=== PATIENT | male | born 1955 | race Caucasian/White ===

== ENCOUNTER 2024-09-15 13:24 | Inpatient (IN) | payer MEDICARE, OTHER, SELFPAY ==
[2024-09-15] VITALS (9 sets, daily range): BP systolic 100–148; BP diastolic 62–104; BMI 22.5; BMI 35.8
[2024-09-15 11:00] LABS: Hematocrit 43.7 % (39.0-52.0); Hemoglobin 15.1 g/dL (13.0-18.0); Mean Corp Hgb Conc. 34.6 g/dL (33.0-37.0); Mean Corpuscular Volume 86.2 fL (80.0-94.0); Nucleated Red Blood Cells % 0 % (-); Platelet Count 167 10^3/uL (130-400); Red Cell Dist. Width 13.0 % (11.5-14.5)
[2024-09-15 11:17] LABS: ALT (SGPT) 73 U/L (0-50); AST (SGOT) 39 U/L (17-59); Albumin 4.4 g/dl (3.5-5.0); Alkaline Phosphatase 48 U/L (38-126); Blood Urea Nitrogen 18 mg/dl (9-20); Calcium 8.8 mg/dl (8.4-10.2); Carbon Dioxide 26 mmol/L (22-30); Chloride 108 mmol/L (98-107); Glucose 100 mg/dl (70-99); Potassium 4.4 mmol/L (3.5-5.1); Sodium 140 mmol/L (135-145); Total Protein 6.7 g/dl (6.3-8.2); eGFR 59.47
[2024-09-15 11:30] LABS: Troponin I 0.064 ng/ml
--- NOTE | 2024-09-15 11:52 | ED.GENMED ---
History of Present Illness
General
Chief Complaint: Cardiac Symptoms
Time Seen by Provider: 09/15/24 11:41
History of Present Illness
History of Present Illness:
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 States he had similar symptoms with
exertion approximately 3 months ago but they resolved. He reports some chest tightness but denies any overt chest pain with the symptoms. Currently no chest pain in the exam bed but does report shortness of breath after changing into a gown. He
has chronic left lower extremity edema due to a known chronic DVT for which he is not currently anticoagulated. Denies any recent immobilization or travel. No fevers or chills, no coughing. Does have family history of cardiovascular disease but
no primary history of tobacco use, hypertension, or hyperlipidemia
Review of Systems
Review of Systems
Allergies reviewed?: Yes
All Other Systems: ROS reviewed and negative except as documented in HPI and ROS
Phy Exam
Physical Exam
Physical Exam:
GEN: Well appearing, NAD, WDWN
Eyes: PERRLA, EOMs intact, no scleral icterus
HENT: NCAT, oral mucosa moist
Lungs: CTAB, no wheezes, rales, rhonchi, normal chest wall excursion
Cardiac: Mildly tachycardic, regular, no murmur
Abdomen: S, NT, ND, NABS, no masses or hepatosplenomegaly
Neuro: AO x 3
MSK: No gross deformity or ecchymosis. No edema. No digital clubbing
Skin: No rashes, petechiae. Normal color, no pallor or jaundice.
Psych: Calm, cooperative, proper hygiene
Course
Orders/Labs/Results
Orders:
Orders
09/15/24 10:47
Electrocardiogram (*1) Urgent
Reason for Study: Chest Pain
EKG- Treatment ONCE
09/15/24 10:53
Complete Blood Count/With Diff Urgent
Comprehensive Metabolic Panel Urgent
NT-proBNP Urgent
Troponin I Urgent
09/15/24 11:51
Add On- LAB Urgent
Tests Added?: BNP
CT Chest PE Study Urgent
Comment:
Reason For Exam: SOB/exertional tachycardia
Aspirin Chewable [Low Strength Aspirin] 324 mg PO NOW STA
09/15/24 11:56
Heparin 4,000 units IV NOW STA
09/15/24 11:58
PTT Urgent
Comment: Obtain baseline before beginning heparin infusion if not already collected
09/15/24 12:00
Heparin 39375 Units/250 ml 25,000 units in 250 ml IV PER PROTOCOL
Weight to be used for heparin protocol in kilograms (kg):: 79.5
Protocol:: Cardiac Tx/Acute Coronary
PTT Goal Range to be used:: PTT 73 to 111 seconds
Order type:: Initial
INITIAL Infusion Dose (UNITS/KG/hr) & then follow protocol:: 15 units/kg/hr
Infusion Dose in UNITS/hr & then follow protocol (UNITS/hr):: 1,200
INFUSION RATE in mL/hr & then follow protocol (mL/hr):: 12
PTT less than or equal to 64 seconds:: Increase rate by 200 units/hr (+ 2 mL/hr)
PTT 64.1 to 72.9 seconds:: Increase rate by 100 units/hr (+ 1 mL/hr)
PTT 73 to 111 seconds:: Target Range. No change in rate.
PTT 111.1 to 130.9 seconds:: Decrease rate by 100 units/hr (- 1 mL/hr)
PTT 131 to 199.9 seconds:: HOLD for 1 hr. Then decrease rate by 200 units/hr (- 2 mL/hr)
PTT greater than or equal to 200 seconds:: HOLD for 2 hrs & Notify Provider. Then decrease by 200 units/hr (-
2 mL/hr)
Lab follow-up:: Each change, PTT q6h until 2 consecutive are therapeutic. Then PTT
daily.
09/15/24 12:21
Heparin 6,400 units IV NOW STA
Nursing to Place Non Medication Order As Directed
Physician Order: PTT 6 hours after initial start of Heparin infusion
Above order entered?: Yes
09/15/24 12:26
Heparin 3,200 units IV PRN PRN
Heparin 6,400 units IV PRN PRN
09/15/24 12:30
Echo 2D MMode Color/Doppler Stat
Reason for Study: bilateral PEs/RV strain
Cardiology Consult: Nilesh Miranda
Heparin 85076 Units/250 ml 25,000 units in 250 ml IV PER PROTOCOL
Weight to be used for heparin protocol in kilograms (kg):: 79.5
Protocol:: DVT/PE
PTT Goal Range to be used:: PTT 73 to 111 seconds
Order type:: Initial
INITIAL Infusion Dose (UNITS/KG/hr) & then follow protocol:: 18 units/kg/hr
Infusion Dose in UNITS/hr & then follow protocol (UNITS/hr):: 2,000
INFUSION RATE in mL/hr & then follow protocol (mL/hr):: 20
For DVT/PE algorithm, re-bolus for low PTT?: Yes
PTT less than or equal to 64 seconds:: Re-bolus 80 units/kg (max 10,000units). Increase by 300 units/hr
(+ 3mL/hr)
PTT 64.1 to 72.9 seconds:: Re-bolus 40 units/kg (max 5,000 units). Increase by 200 units/hr
(+ 2mL/hr)
PTT 73 to 111 seconds:: Target Range. No change in rate.
PTT 111.1 to 130.9 seconds:: Decrease rate by 200 units/hr (- 2 mL/hr)
PTT 131 to 199.9 seconds:: HOLD for 1 hr. Then decrease by 200 units/hr (- 2mL/hr)
PTT greater than or equal to 200 seconds:: HOLD for 2 hrs & Notify Provider. Then decrease by 300 units/hr
(- 3mL/hr)
Lab follow-up:: Each change, PTT q6h until 2 consecutive are therapeutic. Then
PTT daily.
09/15/24 13:00
Flush (0.9% Sodium Chloride) [Flush (Nss)] See Dose Instructions IV PER PROTOCOL
09/15/24 13:06
Admit/Transfer Patient As Directed
Co-Sign Provider:
Level of Care: Inpatient admission
Assign to:: IMU- Intermediate Care
Physician / Group: amaury crowe
Diagnosis: bilat pe' with rv strain, hx chronic LLE dvt
Reason for Hospitalization: bilat pe' with rv strain, hx chronic LLE dvt
Expected length of stay greater than two midnights?: Yes
ELOS- Estimated Length of Stay in days: 5
I certify the patient meets the requirements for IP care: Yes
Code Status As Directed
Resuscitation Status: Full Code
09/15/24 13:09
PRN Pain Medication Management As Directed
May give lesser potent ordered pain med per pt: Yes
preference::
Protocol:: Medication orders for pain may be administered in a
manner that supports deferring to patient preference
when the pt is:
- Requesting an ordered lesser potent pain medication.
Least to most potent pain medications are defined
as: acetaminophen < NSAID < tramadol < opioids
(morphine, oxycodone, hydromorphone).
- Requesting a lesser dose of the same medication IF
ORDERED.
- Requesting a less intrusive route of administration
if both routes are prescribed by the provider (PO <
IV).
09/15/24 13:10
Old Records Request [Obtain Records] As Directed
Dates of Information to be Released: 8086-1197
Type of Information Requested: Entire Record
Radiology Results
Obtain Records from: [facility] [phone] dvt lle,coagulopathy lab
Comment: ultrasound lle
09/15/24 13:13
Venous Doppler Lwr Ext Bilat [US Periph Venous LOWER Ext Ulises] Urgent
Comment:
Reason For Exam: LLE chronic dvt, swelling
09/15/24 13:14
PULMONARY CONSULT Routine
Consulting Provider: Bari Siegel
Was physician already notified: Yes
Reason for consult: bilat pe's with rv strain
09/15/24 14:56
Acetaminophen [Tylenol] 650 mg PO Q4HPRN PRN
09/15/24 14:56
Heparin Protocol- PTT Orders As Directed
PTT per Heparin protocol: -Obtain CBC and baseline PTT - if not already collected.
-Obtain PTT 6 hours from start of infusion. Then, every 6 hours until 2 consecutive
PTT's are therapeutic. Then, PTT Daily.
-With each rate change, obtain PTT every 6 hours until 2 consecutive PTT's are
therapeutic. Then, PTT Daily.
Activity As Directed
Activity Level: As Tolerated
Notify MD As Directed
Notify physician if: PTT is greater than or equal to 200.
Vital Signs As Directed
Frequency: Per unit guidelines
Pulse Ox/spot Check [RESP] Routine
Quantity: 1
09/15/24 Dinner
Cholesterol Lowering
At Your Request: Full Participation
Cholesterol Lowering: Sodium, 2 Gram
09/15/24 18:34
PTT Routine
09/16/24 06:00
Complete Blood Count/With Diff IN AM
Comprehensive Metabolic Panel IN AM
09/17/24 06:00
Complete Blood Count/No Diff Q2D
Comment: notify provider: Platelet count < 130,000 or decrease by 50% from baseline
Complete Blood Count/With Diff IN AM
Comprehensive Metabolic Panel IN AM
09/18/24 06:00
Complete Blood Count/With Diff IN AM
Comprehensive Metabolic Panel IN AM
09/19/24 06:00
Complete Blood Count/No Diff Q2D
Comment: notify provider: Platelet count < 130,000 or decrease by 50% from baseline
09/21/24 06:00
Complete Blood Count/No Diff Q2D
Comment: notify provider: Platelet count < 130,000 or decrease by 50% from baseline
09/23/24 06:00
Complete Blood Count/No Diff Q2D
Comment: notify provider: Platelet count < 130,000 or decrease by 50% from baseline
09/25/24 06:00
Complete Blood Count/No Diff Q2D
Comment: notify provider: Platelet count < 130,000 or decrease by 50% from baseline
09/27/24 06:00
Complete Blood Count/No Diff Q2D
Comment: notify provider: Platelet count < 130,000 or decrease by 50% from baseline
09/29/24 06:00
Complete Blood Count/No Diff Q2D
Comment: notify provider: Platelet count < 130,000 or decrease by 50% from baseline
10/01/24 06:00
Complete Blood Count/No Diff Q2D
Comment: notify provider: Platelet count < 130,000 or decrease by 50% from baseline
Abnormal Lab Results
09/15/24
10:53
MPV 10.5 H fL
(7.4-10.4)
Lymphocytes % 20.0 L %
(20.5-51.1)
Chloride 108 H mmol/L
(98-107)
Glucose 100 H mg/dl
(70-99)
ALT 73 H U/L
(0-50)
Troponin I 0.064 H* ng/ml
09/15/24 10:53
09/15/24 10:53
Vital Signs
Initial and Last Documented VS:
Initial Vital Signs
Temp Pulse Resp BP Pulse Ox
98.5 F 110 16 122/84 95
09/15/24 10:45 09/15/24 10:45 09/15/24 10:45 09/15/24 10:45 09/15/24 10:45
Last Documented Vital Signs
Temp Pulse Resp BP Pulse Ox
97.8 F 79 17 148/102 96
09/15/24 15:10 09/15/24 16:15 09/15/24 16:15 09/15/24 16:00 09/15/24 16:30
MDM/Problems Addressed
MDM/Problems Addressed:
69-year-old male presented with exertional tachycardia and shortness of breath. He has a known history of left lower extremity DVT thus he was sent urgently for CT to evaluate for pulmonary embolism. He was found to have bilateral PEs with
significant right heart strain however hemodynamically and clinically he is quite stable. Started promptly on heparin. Initially he was given aspirin after initial evaluation given the suspicion for potential ACS in the setting of EKG changes
compared to prior. Case was discussed after completion of CT with radiology, interventional radiology, and pulmonology for continuity of care, at this time we will maintain heparin and admit the patient to the hospitalist service pending further
workup
Comment
Comment:
EKG independently interpreted by me shows a normal sinus rhythm with mild ST depressions and T wave inversions in V3 and V4 which are new compared to 08/06 EKG provided by primary care physician
*Pulse Oximetry
SaO2: 95
Oxygen Mode of Delivery: Room air
Patient hypoxic: no
*Critical Care Note
Total Time (30-74mins, 75-104mins- exclusive of procedures): 40 minutes
comment:
Critical care time: 45 minutes
Critical care time was exclusive of: Separately billable procedures, treating other patients, and teaching time
Critical care was necessary to treat or prevent imminent or life-threatening deterioration of the following conditions: Bilateral pulmonary embolism
Critical care time spent personally by me on the following activities:
[x] Review of old charts
[x] Obtaining history from patient or surrogate
[x] Ordering and review of the laboratory studies
[x] Ordering and review of radiographic studies
[x] Ordering and performing treatments and interventions
[x] Patient patient's response to treatment
[x] Development of treatment plan with patient or surrogate
ED Attending Note
-
Portions of this chart may have been created with voice recognition software.� Occasional wrong word or��sound alike� substitutions may have occurred due to the inherent limitations of voice recognition software.
Discharge Plan
Departure
Patient Disposition: Admit
Date of Disposition: 09/15/24
Time of Disposition: 12:33
Admit to: Telemetry
Presentation/result/management discussed w/ accepting MD/DO: Hospitalist
Discharge Problem:
Bilateral pulmonary embolism
Interventions
Interventions:
*Risk Screen - Suicide Last Done: 09/15/24 10:47
*General Assessment Last Done: 09/15/24 11:57
*Neglect/Abuse Screening Last Done: 09/15/24 10:47
*ED- Fall Risk Assessment Last Done: 09/15/24 11:58
*ED COVID-19 Vaccine History Last Done: 09/15/24 11:57
*Nursing Disposition Last Done: 09/15/24 15:02
ED- Pulmonary Assessment Last Done: 09/15/24 12:55
ED- Cardiac Assessment Last Done: 09/15/24 12:55
Discharge Date and Time
Discharge Date/Time: 09/15/24 15:03
[2024-09-15] MEDS: LOW STRENGTH ASPIRIN 324 MG PO (12:00)
[2024-09-15 12:17] LABS: APTT 27.5 Sec (23.4-35.0)
[2024-09-15] MEDS: HEPARIN 25000 UNITS/250 ML IV (12:34)
[2024-09-15] MEDS: HEPARIN 6400 UNITS IV (12:34)
--- NOTE | 2024-09-15 12:39 | HPS.HSE ---
Family Physician
-
Family Physician: Alvin Garrido
Chief Complaint
-
Palpitations, shortness of breath, chest pain
History of Present Illness
69-year-old male with history of chronic DVTs of left lower extremity has been complaining of palpitations and shortness of breath over the past 3 to 4 days along with some chest tightness. He has a chronic left lower extremity DVT with edema that
he is not on anticoagulation for. He denies any recent injury, travel, fever, chills, cough, abdominal pain, nausea, vomiting, diarrhea, urinary symptoms. He has past medical history of chronic unprovoked DVT left lower extremit in 2020 he was on
Eliquis for 1.5 years had follow-up Doppler of his left lower extremity which showed an Unchanged chronic DVT. He tells me he stopped Eliquis on his own he did tell his oncologist he was not put on any other anticoagulation. He is unsure whether
or not he had any blood clotting disorders.
Medical History
Past Medical History
Past Medical History: Reports Other
Additional Past Medical History:
chronic DVT left lower extremity unprovoked was on Eliquis however unchanged question failure
Past Surgical History: Reports Other
Additional Past Surgical History:
Appendectomy
Hernia repair
Hand surgery
Social History
Tobacco: Non-smoker
Alcohol: None
Drug: None
Personal:
Living: With Family
Employment: Retired
Family History
Family History: Early CAD (Brother age 65 massive [place]) and Other (Mother 95 PAD, father 92 CVA)
Allergies / Home Medications
Allergies reflects when Allergies were last updated in [facility].
Home Medications with original date entered in [facility]
Allergy/Medication List:
Allergies
Allergy/AdvReac Type Severity Reaction Status Date / Time
No Known Allergies Allergy Unverified 09/15/24 10:47
Home Medications
acetaminophen 500 mg tablet (Tylenol Extra Strength) 500 mg PO Q6HPRN PRN headache 09/15/24
Review of Systems
-
History Source: Patient and Family ( at bedside)
A 12 point ROS was completed and negative except as noted: Yes
Constitutional: Denies Fever or Fatigue
EENT: Denies Sore Throat or Runny Nose
Respiratory: Reports Trouble Breathing (HERRON); Denies Cough
Cardiac: Reports Chest Pain and Palpitations; Denies Diaphoresis
Abdomen/GI: Denies Abdominal Pain, Nausea, Vomiting, Diarrhea, Constipated or Bloody Stools
: Denies Dysuria, Frequency, Flank Pain, Incontinence or Difficulty Voiding
Musculoskeletal: Denies Joint Pain or Edema
Skin: Denies Itching or Rash
Neurological: Denies Dizzy, Headache or Weakness
Endocrine: Reports No Symptoms
Hematologic/Lymphatic: Reports No Symptoms
Psych: Reports Calm
Physical Exam
Vital Signs
Vital Signs
Temp Pulse Resp BP Pulse Ox
98.5 F 111 26 141/104 95
09/15/24 10:45 09/15/24 11:45 09/15/24 11:45 09/15/24 11:45 09/15/24 11:52
Physical Exam
General: Comfortable, Conversant and Pain; No Fever or Chills
HEENT: NormoCephalic, Anicteric, Moist mucous membranes, PERRLA, [place] Conjunctivae and No Ptosis
Respiratory: Clear; No Wheezes, Rales or Rhonchi
Cardiac: S1/S2, Regular Rhythm and Calf Tenderness (Left); No Murmur, Rub, Gallop or Peripheral Edema
Breast: Deferred by me
GI: Soft, Non Tender, Non Distended, Normal Bowel Sounds and No Hepatosplenomegaly
Rectal: Deferred by Provider
Genito-urinary: Deferred by me
Musculoskeletal: No Clubbing, No Cyanosis and No Edema
Skin: Warm and Dry; No Rash or Jaundice
Neuro: AO x 3, No Motor Deficits, Nonfocal/grossly intact, Cranial Nerves Intact and No Sensory Deficits; No Slurred Speech, Facial Droop, Tremors or Sedated
Psych: Calm
Laboratory Results
-
09/15/24 10:53
09/15/24 10:53
Laboratory Results
APTT 27.5 Sec (23.4-35.0) 09/15/24 11:58
Total Bilirubin 1.3 mg/dl (0.2-1.3) 09/15/24 10:53
AST 39 U/L (17-59) 09/15/24 10:53
ALT 73 U/L (0-50) H 09/15/24 10:53
Alkaline Phosphatase 48 U/L (38-126) 09/15/24 10:53
Troponin I 0.064 ng/ml H* 09/15/24 10:53
Data Reviewed
-
Lab Data: Labs Reviewed by me
Impression/Plan
-
Impression/plan:
Admit to IMU
#Bilateral PEs with RV strain
#History chronic DVT left lower extremity 2020 x 1.5 years was on Eliquis�CLOT never resolved patient stopped Eliquis on his own( high concern FAILURE on ELIQUIS)
Was treated by [facility] Dr. Lopes- obtain old records including coagulopathy workup and lower extremity Dopplers
- Stat echo ordered
- Consult Pulmonary
- IV heparin drip
- Ultrasound bilateral lower legs
#Troponin elevation in setting of bilateral PEs
Troponin 0.064 will trend
Full code
--- NOTE | 2024-09-15 13:37 | W.PN.UPDATE ---
Update Note
Progress Note Update
This is an addendum to the H&P written by Teagan Zavala on 09/15/2024. �Patient seen and examined independently with CHECK GRADER.
69-year-old male past medical history of unprovoked chronic DVT of left lower extremity in 2020 s/p Eliquis for 1.5 year with presistence presenting with palpitations and shortness of breath for past 3 to 4 days, dizziness. �No chest pain but some
chest tightness.
Vital signs show tachycardia of 110. �EKG shows
Troponin of 0.064. �Cardiac BNP of 2600.
CT of chest shows pulmonary emboli within the distal right and left pulmonary arteries extending into the lobar and segmental pulmonary arteries. �There is associate findings of right heart strain including flattening of the interventricular septum
and reflux of contrast into the IVC.
Heparin drip started.
Trend troponins. �Echocardiogram and venous US lower extremities. �IR and pulmonary consulted. �No interventions recommended as patient hemodynamically stable. Concern for Eliquis failure previously in 2020, should likely be on different
anticoagulant.�
--- NOTE | 2024-09-15 13:55 | CARDSERVLU ---
Echocardiogram with [facility] completed after protocol screening completed. Allergies verified.
Patent IV site: __R wrist___
IV site flushed with 0.9% NaCl pre and post administration.
Diluted bolus method utilized to enhance visualization of ventricular bill.
Total volume given: __4__ mL
Patient tolerated all procedures well without complications.
--- NOTE | 2024-09-15 14:13 | CM ---
CM reviewed chart and met with pt bedside in ED. Lives with , split level home, no RAYMON, 5 steps down to lower level half BA, 11 total steps up to 3rd level BR/full BA.
Independent in ADLs, personal care and ambulation at baseline. No hx VN/SNF.
PCP: Alvin Garrido
Pharmacy: [facility]
Discharge plan: Anticipate home pending ongoing medical evaluation, watch for needs
--- NOTE | 2024-09-15 14:25 | CON.PUL ---
Consultation
Consultation Request
Date/Time Consultation Requested: 09/15/2024
Date/Time Consultation Performed: 09/15/2024
Requesting Provider: Dr. Schumacher
Performing Provider: Dr. Bari Quick
Reason for Consultation: Acute bilateral pulmonary Rolanda
Medical History
-
History of Present Illness:
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
Patient has not been on anticoagulation for his chronic DVT.
Denies any recent trauma, long distance travel or change in medications.
His prior DVT was from 2020 was unprovoked patient took Eliquis for 1 year and a half. Lower extremity continues to demonstrate chronic DVT.
Patient stopped Eliquis on his own accord. He follows up with hematology.
CT angiogram 09/15/2024: Showed bilateral pulmonary embolism with possible RV strain.
Past Medical History
Past Medical History: Other (See assessment and plan)
Social History
Tobacco: Non-smoker
Alcohol: None
Drug: None
Family History
Family History: Other (Brother with history of massive [place] at 65, no prior history of clots)
Allergies / Home Medications
Allergies
Allergy/AdvReac Type Severity Reaction Status Date / Time
No Known Allergies Allergy Unverified 09/15/24 10:47
Home Medications
�Medication �Instructions �Recorded �Confirmed �Last Taken �Type
acetaminophen 500 mg tablet 500 mg PO Q6HPRN PRN headache 09/15/24 09/15/24 09/14/24 History
(Tylenol Extra Strength)
Review of Systems
-
History Source: Patient
All other systems: Negative unless noted
Vitals / Labs / Diagnostic Testing
Vital Signs
Temp Pulse Resp BP Pulse Ox
98.5 F 78 16 136/88 95
09/15/24 10:45 09/15/24 14:00 09/15/24 14:00 09/15/24 14:00 09/15/24 14:00
Lab Data
09/15/24 10:53
09/15/24 10:53
Laboratory Results
09/15/24
11:58
APTT 27.5
Diagnostic Testing:
Physical Exam
-
HEENT: Normocephalic
Cardiovascular: S1/S2
Respiratory: Non-Labored Respirations
GI: Soft and Non Distended
Neurology: Awake, AO x 3 and No Motor Deficits
Skin: Warm
General: Comfortable
Assessment
-
69-year-old male with past medical history noted. With a few days of palpitations, chest tightness. Found to have bilateral pulmonary embolism with RV strain. We were consulted for evaluation.
Patient has history of chronic DVT unprovoked in 2020. Took anticoagulation for 1-1/2 years. On his own accord.
Submassive acute bilateral pulmonary embolism: Unprovoked
Positive troponin 0.064/proBNP 2610
Not hypoxic
Not tachycardic or hypotensive.
CT angiogram reviewed 09/15/2024:
There are bilateral pulmonary emboli within the distal right and left pulmonary arteries extending into the truncus anterior band, lobar and segmental pulmonary arteries. There is flattening of the interventricular septum with reflux of contrast
into the IVC. RV LV ratio: 1.06.
The central airways are patent. There are no suspicious pulmonary nodule. Mild bibasilar atelectasis.. No pleural effusion or pneumothorax.
No mediastinal, hilar or axillary lymphadenopathy.
No suspicious osseous lesions. Mild degenerative changes of the thoracic spine. There are flowing anterior osteophytes, likely DISH.
-
Conditions present prior admission:
Left unprovoked DVT [id number] with hematology. Stopped anticoagulation on his own accord
Prior appendectomy
Prior hernia repair
Non-smoker
Assessment and plan:
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 Patient stopped anticoagulation on his own accord about 1 year and a half ago.
Several weeks ago had a long distance car ride.
Patient followed by Dr. Lopes at [facility] has not followed up-sometime, unclear whether he has hypercoagulable disorder.
Per patient report left lower extremity DVT was unprovoked.
Right lower extremity is swollen and has persistent DVT per patient reports.
-
Hemodynamically stable, not hypoxemic or tachycardic.
Does have some evidence for RV strain with increased proBNP and mild troponin leak.
Patient does report exertional dyspnea with exertion. No symptoms at rest.
Pulse ox is 92% with conversation.
No significant JVD on exam.
Obtain echocardiogram.
Obtain lower extremity ultrasound: Patient reports persistent chronic DVT on the right despite 1 and half year of anticoagulation.
For now hold off on thrombolytics as patient is hemodynamically stable and has no sign of decompensation.
Will continue to reassess, if there is hypotension, persistent tachycardia or worsening hypoxemia may consider thrombolytics.
Agree with heparin drip . For at least 48 to 72 hours depending on symptoms -follow PTT.
-
Consider hematology evaluation during this hospital stay as the patient already sees hematology in the outpatient setting. All records will be obtained.
-
Will continue to follow
-
Dr. Quick updated at the bedside 09/15/2024.
--- NOTE | 2024-09-15 19:43 | PTCARENOTE ---
received pt from ed. admitted and oriented to room.pt noted to have weight 100 lbs more than charted in ED. discussed with pharmacy as pt on weight based heparin. dose adjusted by pharmacy and changed to [address] units/hr[address] Dr Schumacher made aware .ptt to
be rechecked at 2300
[2024-09-15 23:33] LABS: APTT 72.7 Sec (23.4-35.0)
[2024-09-15 23:52] LABS: Troponin I 0.084 ng/ml
[2024-09-16] VITALS (13 sets, daily range): BP systolic 116–156; BP diastolic 72–105; BMI 35.7
[2024-09-16] MEDS: HEPARIN 5000 UNITS IV ×2 (00:09→21:26)
[2024-09-16] MEDS: HEPARIN 25000 UNITS/250 ML IV ×2 (02:28→15:28)
[2024-09-16 06:01] LABS: Hematocrit 40.7 % (39.0-52.0); Hemoglobin 14.3 g/dL (13.0-18.0); Mean Corp Hgb Conc. 35.1 g/dL (33.0-37.0); Mean Corpuscular Volume 85.7 fL (80.0-94.0); Nucleated Red Blood Cells % 0 % (-); Platelet Count 152 10^3/uL (130-400); Red Cell Dist. Width 12.9 % (11.5-14.5)
--- NOTE | 2024-09-16 06:15 | PTCARENOTE ---
Heparin gtt continued, see work list. Pt appearing to get sleep over night. Respiration even un labored, spo2 dropping to 88% at times, Pt awoken spo2 back into the 90's. Vitals stable at this time. Pt wearing own cpap at night, order placed by [employer].
Pt appearing to tolerate well over night. Pt had no complaints over night. Assessment care and vitals as charted.
[2024-09-16 06:33] LABS: APTT 149.1 Sec (23.4-35.0)
[2024-09-16 06:48] LABS: Troponin I 0.076 ng/ml
[2024-09-16 07:17] LABS: ALT (SGPT) 75 U/L (0-50); AST (SGOT) 39 U/L (17-59); Albumin 4.0 g/dl (3.5-5.0); Alkaline Phosphatase 48 U/L (38-126); Blood Urea Nitrogen 15 mg/dl (9-20); Calcium 8.5 mg/dl (8.4-10.2); Carbon Dioxide 24 mmol/L (22-30); Chloride 109 mmol/L (98-107); Estimated Creatinine Clearance 109 ml/min; Glucose 93 mg/dl (70-99); Potassium 4.3 mmol/L (3.5-5.1); Sodium 139 mmol/L (135-145); Total Protein 6.5 g/dl (6.3-8.2); eGFR > 60.00
--- NOTE | 2024-09-16 10:18 | W.PN.PUL3 ---
Today's Communication / Plan
-
Cont. Heparin gtt
Follow PTT per protocol.
LE dopplers pending.
hemodynamic monitoring.
Ok to ambulate in room this PM
Assessment
-
69-year-old male with past medical history noted. With a few days of palpitations, chest tightness. Found to have bilateral pulmonary embolism with RV strain. We were consulted for evaluation.
Patient has history of chronic DVT unprovoked in 2020. Took anticoagulation for 1-1/2 years. On his own accord.
Submassive acute bilateral pulmonary embolism: Unprovoked
Intermediate High risk category.
Positive troponin 0.064/proBNP 2610
RV dysfunction on ECHO
Not hypoxic- low rate supplemental oxygen only.
Not tachycardic or hypotensive.
CT angiogram reviewed 09/15/2024:
There are bilateral pulmonary emboli within the distal right and left pulmonary arteries extending into the truncus anterior band, lobar and segmental pulmonary arteries. There is flattening of the interventricular septum with reflux of contrast
into the IVC. RV LV ratio: 1.06.
The central airways are patent. There are no suspicious pulmonary nodule. Mild bibasilar atelectasis.. No pleural effusion or pneumothorax.
No mediastinal, hilar or axillary lymphadenopathy.
No suspicious osseous lesions. Mild degenerative changes of the thoracic spine. There are flowing anterior osteophytes, likely DISH.
-
Conditions present prior admission:
Left unprovoked DVT [id number] with hematology. Stopped anticoagulation on his own accord
Prior appendectomy
OSIEL on CPAP- follows up with Dr. Nishant Gaona
Prior hernia repair
Non-smoker
Assessment and plan:
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 Patient stopped anticoagulation on his own accord about 1 year and a half ago.
Several weeks ago had a long distance car ride.
Symptoms started 6-7 days prior admission.
-
Patient followed by Dr. Lopes at [facility] has not followed up-sometime, unclear whether he has hypercoagulable disorder.
Per patient report left lower extremity DVT was unprovoked.
Right lower extremity is swollen and has persistent DVT per patient reports.
-
Hemodynamically stable, not hypoxemic or tachycardic.
Was able to ambulate to restroom without symptoms. OK to walk around room later today.
-
Does have evidence for RV strain on ECHO with increased proBNP and mild troponin leak-
Patient does report exertional dyspnea with exertion. No symptoms at rest.
Pulse ox is 92% with conversation on RA.
No significant JVD on exam.
Pending -Lower extremity ultrasound: Patient reports persistent chronic DVT on the right despite 1 and half year of anticoagulation.
-
For now hold off on thrombolytics as patient is hemodynamically stable and has no sign of decompensation. No saddle component, mostly asymptomatic. Symptoms started about 6-7d ago.
Will continue to reassess, if there is hypotension, persistent tachycardia or worsening hypoxemia may consider thrombolytics.
Discussed with IR and primary team 09-16-2024 - hold on thrombolytics for now. Reconsider if there is large acute DVT.
Continue with heparin drip for today, follow PTT. PO AC depending on symptoms in next 24-48hr.
-
Consider hematology evaluation during this hospital stay as the patient already sees hematology in the outpatient setting. All records will be obtained.
-
OSIEL- cont. CPAP - follows with Dr. Nishant Gaona.
-
Will continue to follow
-
Dr. Quick updated at the bedside 09/15/2024 and also with son in law and patient detail 09/16/2024.
Subjective Data
-
Date of Service:
Date of Service: September 16, 2024
Chief Complaint: Pulmonary Follow Up (Submassive pulmonary embolism)
Subjective:
No complaints.
Was able to ambulate to restroom without symptoms this AM.
Denies CP or dizziness.
Review of Systems
General: Fever (n)
Cardiopulmonary: Dyspnea, Dyspnea on Exertion and Cough (n)
Neuro: Dizziness (n)
Objective Data
Data Reviewed
Vital Signs / I&O / Oxygen:
Vital Signs
Temp Pulse Resp BP Pulse Ox
98.4 F 84 19 135/85 93
09/16/24 07:00 09/16/24 10:04 09/16/24 10:04 09/16/24 10:04 09/16/24 10:04
Intake and Output
09/15/24 09/16/24 09/17/24
06:59 06:59 06:59
Intake Total 120 / 120
Balance 120 / 120
SaO2 93
Nasal Cannula flow liters per 2
minute
Physical Exam
General: Comfortable
HEENT: Normocephalic
Cardiovascular: S1-S2 and JVD (n)
Respiratory: Clear and Non-Labored Respirations
GI: Soft and Non Distended
Neurology: Awake, Oriented, AO x 3 and No Motor Deficits
Skin: Warm
Labs/Micro/Reports
Lab Data
09/16/24 05:53
09/16/24 05:53
Laboratory Results
09/15/24 09/15/24 09/15/24
11:58 18:34 23:14
APTT 27.5 Cancelled 72.7 H
09/16/24
05:53
APTT 149.1 H
[2024-09-16 14:30] LABS: APTT 74.0 Sec (23.4-35.0)
--- NOTE | 2024-09-16 14:34 | W.PN.HOSP.TC ---
Addendum entered and electronically signed by Smith Okeefe DO 09/17/24 15:02:
Pulmonary embolism without acute cor pulmonale
Type II PR due to demand ischemia from PE/DVT
Original Note:
Today's Communication/Plan
-
Assessment / Plan
Assessment / Plan
General: No Apparent Distress, Comfortable and Conversant
HEENT: NormoCephalic, Moist mucous membranes, Atraumatic
Respiratory: Clear and Non Labored Respirations
Cardiac: S1/S2 and Regular Rhythm; No Rub or Gallop
GI: Soft, Non Tender, Non Distended and Normal Bowel Sounds
Musculoskeletal: mild bilateral lower extremity edema, no deformity
Skin: Warm and dry
: NO Truong
Neuro: Awake, Alert, Nonfocal/grossly intact
Psych: Calm and Intact Judgment/Insight
Mr. Marte is a 69-year-old male medical history of unprovoked left lower extremity DVT (was on Eliquis for 1.5 years but stopped on his own) who presented with shortness of breath that began approximately 1 week prior to arrival. He did have a
long car ride prior to symptom onset. In the ED he remained hemodynamically stable and was saturating appropriate on room air. CT angiography of the chest showed bilateral pulmonary emboli. He was started on heparin drip and admitted for further
evaluation and management.
Pulmonary emboli:
- CT angiography showed bilateral pulmonary emboli
- Echocardiogram shows evidence of right heart strain with flattened septum in systole
- Lower extremity Dopplers show bilateral DVTs right greater than left
- Continuing anticoagulation with IV heparin
- Currently no indication for thromboembolectomy/thrombolysis considering improvement in symptoms, will monitor and consider procedure if needed
- Appreciate pulmonology guidance
- Unclear if patient has hypercoagulable disorder, will need ongoing hematology follow-up
DVT prophylaxis: IV heparin
CODE STATUS: Full code
Total time spent on today's encounter was 44 minutes
Anticipated Discharge: > 48 hours
Subjective/Interval History
-
Date of Service: September 16, 2024
Patient was seen and examined at bedside this morning. Currently comfortable and saturating appropriately on room air. Continuing IV heparin for bilateral PE.
Objective Data
-
Labs:
Laboratory Results
09/16/24 09/16/24
05:53 14:08
WBC 5.2
Hgb 14.3
Hct 40.7
Plt Count 152
APTT 149.1 H Pending
Sodium 139
Potassium 4.3
Chloride 109 H
Carbon Dioxide 24
BUN 15
Creatinine 0.9
Glucose 93
Calcium 8.5
Total Bilirubin 1.4 H
AST 39
ALT 75 H
Alkaline Phosphatase 48
Vital Signs:
Vital Signs
Temp Pulse Resp BP Pulse Ox
97.5 F 69 16 156/86 94
09/16/24 11:23 09/16/24 12:00 09/16/24 12:00 09/16/24 12:00 09/16/24 11:11
I&O
09/15/24 09/16/24 09/17/24
06:59 06:59 06:59
Intake Total 120 / 120
Balance 120 / 120
Review of Systems
-
History Source: Patient
All other systems: Reviewed and negative
Musculoskeletal: Reports Edema (Left lower extremity pain with mild swelling)
Physical Exam
-
General: No Apparent Distress
[2024-09-16 20:35] LABS: APTT 69.7 Sec (23.4-35.0)
[2024-09-17] VITALS (11 sets, daily range): BP systolic 99–166; BP diastolic 64–92
--- NOTE | 2024-09-17 00:46 | PTCARENOTE ---
heparin gtt remains in place. See worklist for titrations. Pt denies complaints. Using own CPAP machine. Denies complaints at this time. Assessment as documented. Call hernandez within reach.
[2024-09-17] MEDS: HEPARIN 25000 UNITS/250 ML IV ×2 (03:08→16:56)
[2024-09-17 04:07] LABS: Hematocrit 42.6 % (39.0-52.0); Hemoglobin 15.0 g/dL (13.0-18.0); Mean Corp Hgb Conc. 35.2 g/dL (33.0-37.0); Mean Corpuscular Volume 85.2 fL (80.0-94.0); Nucleated Red Blood Cells % 0 % (-); Platelet Count 168 10^3/uL (130-400); Red Cell Dist. Width 12.8 % (11.5-14.5)
[2024-09-17 04:14] LABS: APTT 126.9 Sec (23.4-35.0)
[2024-09-17 04:46] LABS: ALT (SGPT) 80 U/L (0-50); AST (SGOT) 38 U/L (17-59); Albumin 4.1 g/dl (3.5-5.0); Alkaline Phosphatase 46 U/L (38-126); Blood Urea Nitrogen 13 mg/dl (9-20); Calcium 8.7 mg/dl (8.4-10.2); Carbon Dioxide 21 mmol/L (22-30); Chloride 110 mmol/L (98-107); Estimated Creatinine Clearance 109 ml/min; Glucose 94 mg/dl (70-99); Potassium 4.3 mmol/L (3.5-5.1); Sodium 138 mmol/L (135-145); Total Protein 6.4 g/dl (6.3-8.2); eGFR > 60.00
--- NOTE | 2024-09-17 09:28 | PN.CDI ---
CDI
- -
CDI:
Physician Documentation Request
Admit Date: 09/15/24 13:24
Dear Doctor Maldonado,
Please review the following and provide your response in the progress notes.
Clinical Indicators:
- Patient admit for bilateral pulmonary emboli and DVTs
- H&P 'palpitations and shortness of breath over the past 3 to 4 days along with some chest tightness'
- 09/15 EKG 'T WAVE ABNORMALITY, CONSIDER ANTERIOR ISCHEMIA'
- 09/16 Pulmonary 'Positive troponin 0.064/proBNP 2610'
Laboratory Tests
09/15/24 09/15/24 09/16/24
10:53 23:14 05:53
Troponin I 0.064 H* 0.084 H* 0.076 H*
Please clarify the following regarding the documented elevated troponins:
Non-ischemic myocardial injury
Type II MD due to demand ischemia from PE/DVT
Other (please specify)
Use of terms such as suspected, likely, concern for, or probable (associated with a specific diagnosis that is being evaluated, monitored, or treated as if it exists) are acceptable and can be coded in the inpatient setting, when documented at the
time of discharge.
Thank you,
Costa Jeff RN
CDI Specialist
Please use your independent medical judgment in providing your response.
--- NOTE | 2024-09-17 09:56 | PN.CDI ---
CDI
- -
CDI:
Physician Documentation Request
Admit Date: 09/15/24 13:24
Dear Doctor Maldonado,
Please review the following and provide your response in the progress notes.
Clinical Indicators:
- Patient admit for bilateral pulmonary emboli
- 09/16 PN 'Echocardiogram shows evidence of right heart strain with flattened septum in systole'
- Echo 'Dilated RV with hypokinesis of the RV'
- 'Daniels's sign'
- Estimated pulmonary artery pressure 64mmHg
- right atrial pressure 8 mmHg
Please clarify in the progress notes, the appropriate diagnosis, if significant, that supports the above abnormalities and additional evaluation, monitoring and/or treatment rendered:
Pulmonary embolism with acute cor pulmonale
Pulmonary embolism without acute cor pulmonale
Other (please specify)
Use of terms such as suspected, likely, concern for, or probable (associated with a specific diagnosis that is being evaluated, monitored, or treated as if it exists) are acceptable and can be coded in the inpatient setting, when documented at the
time of discharge.
Thank you,
Costa Jeff RN
CDI Specialist
Please use your independent medical judgment in providing your response.
--- NOTE | 2024-09-17 10:23 | W.PN.PUL3 ---
Today's Communication / Plan
-
Continue heparin drip for today, follow PTT-oral anticoagulants tomorrow if patient stable.
Continue hemodynamic monitoring
Okay to ambulate in the room
Continue nocturnal CPAP
Monitor for bleeding
Hopefully discharge in 24 hours if stable
Assessment
-
69-year-old male with past medical history noted. With a few days of palpitations, chest tightness. Found to have bilateral pulmonary embolism with RV strain. We were consulted for evaluation.
Patient has history of chronic DVT unprovoked in 2020. Took anticoagulation for 1-1/2 years. On his own accord.
Submassive acute bilateral pulmonary embolism: Unprovoked
Bilateral DVTs
Intermediate High risk category.
Positive troponin 0.064/proBNP 2610
RV dysfunction on ECHO
Not hypoxic- low rate supplemental oxygen only.
Not tachycardic or hypotensive.
CT angiogram reviewed 09/15/2024:
There are bilateral pulmonary emboli within the distal right and left pulmonary arteries extending into the truncus anterior band, lobar and segmental pulmonary arteries. There is flattening of the interventricular septum with reflux of contrast
into the IVC. RV LV ratio: 1.06.
The central airways are patent. There are no suspicious pulmonary nodule. Mild bibasilar atelectasis.. No pleural effusion or pneumothorax.
No mediastinal, hilar or axillary lymphadenopathy.
No suspicious osseous lesions. Mild degenerative changes of the thoracic spine. There are flowing anterior osteophytes, likely DISH.
-
Conditions present prior admission:
Left unprovoked DVT [id number] with hematology. Stopped anticoagulation on his own accord
Prior appendectomy
OSIEL on CPAP- follows up with Dr. Nishant Gaona
Prior hernia repair
Non-smoker
Assessment and plan:
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 Patient stopped anticoagulation on his own accord about 1 year and a half ago.
Several weeks ago had a long distance car ride.
Symptoms started 6-7 days prior admission.
-
Patient followed by Dr. Lopes at [facility] has not followed up-sometime, unclear whether he has hypercoagulable disorder.
Per patient report left lower extremity DVT was unprovoked.
Right lower extremity is swollen and has persistent DVT per patient reports.
-
Remained hemodynamically stable.
Not tachycardic
No oxygen requirement
Was able to ambulate to restroom without symptoms. OK to walk around room later today.
-
Does have evidence for RV strain on ECHO with increased proBNP and mild troponin leak-
Patient does report exertional dyspnea with exertion. No symptoms at rest.
Pulse ox is 92% with conversation on RA.
No significant JVD on exam.
Lower extremity Dopplers: 09/16/2024
On the right, there is occlusive thrombus within the right femoral vein, right popliteal vein, as well as the right peroneal and posterior tibial veins. The right common femoral vein is patent as well as the proximal right greater saphenous vein.
On the left, there is nonocclusive thrombus in the left popliteal vein. The left common femoral, femoral, peroneal, and posterior tibial veins are patent. The left proximal greater saphenous vein is patent.
-
For now hold off on thrombolytics as patient is hemodynamically stable and has no sign of decompensation. No saddle component, mostly asymptomatic. Symptoms started about 6-7d ago.
Will continue to reassess, if there is hypotension, persistent tachycardia or worsening hypoxemia may consider thrombolytics.
Discussed with IR and primary team 09-16-2024 - hold on thrombolytics for now.
Patient does have lower extremity DVTs but without large clot burden.
Continue with heparin drip for today, follow PTT. Continue heparin today.
Start oral anticoagulation Eliquis with loading tomorrow 09/18/2024. Hopefully can be discharged at that time.
-
Okay to ambulate in the room and around the monson with supervision.
I discussed with patient-contraindication to traveling by car. He has vacation scheduled for this Saturday that requires 7 to 8-hour drive.
At home after discharge, okay to walk around the house.
No exercising, running, heavy lifting for the next 2 to 3 weeks.
Will need short-term follow-up in the outpatient setting.
Echocardiogram will need to be repeated in the next 3 months depending on symptoms.
-
OSIEL- cont. CPAP - follows with Dr. Nishant Gaona.
-
Will continue to follow
-
Dr. Quick updated at the bedside 09/15/2024 and also with son in law and patient detail 09/16/2024.
Dr. Quick updated at the bedside 09/17/2024
Subjective Data
-
Date of Service:
Date of Service: September 17, 2024
Chief Complaint: Pulmonary Follow Up (Submassive pulmonary embolism)
Subjective:
Patient denies any complaints at rest
Was able to ambulate to the restroom without difficulties
Denies bleeding
Review of Systems
Cardiopulmonary: Dyspnea (none at rest)
GI: Abdominal Pain (n) and Nausea (n)
Neuro: Headache (n)
Objective Data
Data Reviewed
Vital Signs / I&O / Oxygen:
Vital Signs
Temp Pulse Resp BP Pulse Ox
97.6 F 57 16 99/64 95
09/17/24 07:24 09/17/24 06:00 09/16/24 12:00 09/17/24 06:00 09/17/24 04:00
Intake and Output
09/16/24 09/17/24 09/18/24
06:59 06:59 06:59
Intake Total 120 / 120
Balance 120 / 120
SaO2 95
Nasal Cannula flow liters per 2
minute
Physical Exam
General: Comfortable
HEENT: Normocephalic
Cardiovascular: S1-S2 and JVD (n)
Respiratory: Clear and Non-Labored Respirations
GI: Soft and Non Distended
Neurology: Awake, Oriented, AO x 3 and No Motor Deficits
Skin: Warm
Labs/Micro/Reports
Lab Data
09/17/24 03:47
09/17/24 03:47
Laboratory Results
09/16/24 09/16/24 09/17/24
14:08 20:13 03:47
APTT 74.0 H 69.7 H 126.9 H
[2024-09-17 12:34] LABS: APTT 80.3 Sec (23.4-35.0)
--- NOTE | 2024-09-17 15:25 | W.PN.HOSP.TC ---
Today's Communication/Plan
-
Assessment / Plan
Assessment / Plan
General: No Apparent Distress, Comfortable and Conversant
HEENT: NormoCephalic, Moist mucous membranes, Atraumatic
Respiratory: Clear and Non Labored Respirations
Cardiac: S1/S2 and Regular Rhythm; No Rub or Gallop
GI: Soft, Non Tender, Non Distended and Normal Bowel Sounds
Musculoskeletal: mild bilateral lower extremity edema, no deformity
Skin: Warm and dry
: NO Truong
Neuro: Awake, Alert, Nonfocal/grossly intact
Psych: Calm and Intact Judgment/Insight
Mr. Marte is a 69-year-old male medical history of unprovoked left lower extremity DVT (was on Eliquis for 1.5 years but stopped on his own) who presented with shortness of breath that began approximately 1 week prior to arrival. He did have a
long car ride prior to symptom onset. In the ED he remained hemodynamically stable and was saturating appropriate on room air. CT angiography of the chest showed bilateral pulmonary emboli. He was started on heparin drip and admitted for further
evaluation and management.
Pulmonary emboli:
- CT angiography showed bilateral pulmonary emboli
- Echocardiogram shows evidence of right heart strain with flattened septum in systole
- Lower extremity Dopplers show bilateral DVTs right greater than left
- Continuing anticoagulation with IV heparin, eventual transition to DOAC possibly in the next 24 hours
- Currently no indication for thromboembolectomy/thrombolysis considering improvement in symptoms, will monitor and consider procedure if needed
- Appreciate pulmonology guidance
- Unclear if patient has hypercoagulable disorder, will need outpatient hematology follow-up
DVT prophylaxis: IV heparin
CODE STATUS: Full code
Total time spent on today's encounter was 40 minutes
Anticipated Discharge: 24 - 48 hours
Subjective/Interval History
-
Date of Service: September 17, 2024
Patient was seen and examined at bedside. Feeling generally well although slightly dyspneic with exertion. Remains on anticoagulation with IV heparin drip for bilateral pulmonary emboli and bilateral lower extremity DVTs.
Objective Data
-
Labs:
Laboratory Results
09/17/24 09/17/24 09/17/24
03:47 11:00 12:09
WBC 5.6
Hgb 15.0
Hct 42.6
Plt Count 168
APTT 126.9 H Cancelled 80.3 H
Sodium 138
Potassium 4.3
Chloride 110 H
Carbon Dioxide 21 L
BUN 13
Creatinine 0.9
Glucose 94
Calcium 8.7
Total Bilirubin 1.3
AST 38
ALT 80 H
Alkaline Phosphatase 46
09/17/24
18:00
WBC
Hgb
Hct
Plt Count
APTT Pending
Sodium
Potassium
Chloride
Carbon Dioxide
BUN
Creatinine
Glucose
Calcium
Total Bilirubin
AST
ALT
Alkaline Phosphatase
Vital Signs:
Vital Signs
Temp Pulse Resp BP Pulse Ox
97.8 F 118 16 145/83 94
09/17/24 15:00 09/17/24 14:00 09/16/24 12:00 09/17/24 12:00 09/17/24 12:00
I&O
09/16/24 09/17/24 09/18/24
06:59 06:59 06:59
Intake Total 120 / 120
Balance 120 / 120
Review of Systems
-
History Source: Patient
All other systems: Reviewed and negative
Respiratory: Reports Trouble Breathing (With exertion)
Physical Exam
-
General: No Apparent Distress
--- NOTE | 2024-09-17 16:27 | CM ---
Patient with Dx Pulmonary emboli. Room air. Receiving heparin gtt. Per nurse; A/O, assist of 1, ambulatory in halls.
No CM d/c needs identified.
Plan home.
[2024-09-17 18:37] LABS: APTT 66.7 Sec (23.4-35.0)
[2024-09-17] MEDS: HEPARIN 5000 UNITS IV (18:44)
--- NOTE | 2024-09-17 23:32 | PTCARENOTE ---
Caring for patient overnight. aaox3, pleasant. Heparin gtt running, no issues. pt oob, walking halls. Denies pain in legs and denies any SOB or CP. NSR, remains RA. will monitor.
[2024-09-18] VITALS (7 sets, daily range): BP systolic 104–143; BP diastolic 62–85
[2024-09-18 01:30] LABS: Hematocrit 42.3 % (39.0-52.0); Hemoglobin 15.0 g/dL (13.0-18.0); Mean Corp Hgb Conc. 35.5 g/dL (33.0-37.0); Mean Corpuscular Volume 85.8 fL (80.0-94.0); Nucleated Red Blood Cells % 0 % (-); Platelet Count 180 10^3/uL (130-400); Red Cell Dist. Width 12.8 % (11.5-14.5)
[2024-09-18 01:38] LABS: APTT 137.4 Sec (23.4-35.0)
[2024-09-18 02:04] LABS: ALT (SGPT) 92 U/L (0-50); AST (SGOT) 41 U/L (17-59); Albumin 4.2 g/dl (3.5-5.0); Alkaline Phosphatase 54 U/L (38-126); Blood Urea Nitrogen 12 mg/dl (9-20); Calcium 9.1 mg/dl (8.4-10.2); Carbon Dioxide 24 mmol/L (22-30); Chloride 107 mmol/L (98-107); Estimated Creatinine Clearance 89 ml/min; Glucose 98 mg/dl (70-99); Potassium 5.0 mmol/L (3.5-5.1); Sodium 139 mmol/L (135-145); Total Protein 6.7 g/dl (6.3-8.2); eGFR > 60.00
[2024-09-18] MEDS: HEPARIN 25000 UNITS/250 ML IV (06:15)
[2024-09-18 09:59] LABS: APTT 79.9 Sec (23.4-35.0)
--- NOTE | 2024-09-18 10:00 | W.PN.PUL3 ---
Today's Communication / Plan
-
Transition to Eliquis
Discharge today
Follow-up with Dr. Nishant Gaona pulmonary and also hematology at [facility]
Sign off
Assessment
-
69-year-old male with past medical history noted. With a few days of palpitations, chest tightness. Found to have bilateral pulmonary embolism with RV strain. We were consulted for evaluation.
Patient has history of chronic DVT unprovoked in 2020. Took anticoagulation for 1-1/2 years. On his own accord.
Submassive acute bilateral pulmonary embolism: Unprovoked
Bilateral DVTs
Intermediate High risk category.
Positive troponin 0.064/proBNP 2610
RV dysfunction on ECHO
Not hypoxic- low rate supplemental oxygen only.
Not tachycardic or hypotensive.
CT angiogram reviewed 09/15/2024:
There are bilateral pulmonary emboli within the distal right and left pulmonary arteries extending into the truncus anterior band, lobar and segmental pulmonary arteries. There is flattening of the interventricular septum with reflux of contrast
into the IVC. RV LV ratio: 1.06.
The central airways are patent. There are no suspicious pulmonary nodule. Mild bibasilar atelectasis.. No pleural effusion or pneumothorax.
No mediastinal, hilar or axillary lymphadenopathy.
No suspicious osseous lesions. Mild degenerative changes of the thoracic spine. There are flowing anterior osteophytes, likely DISH.
-
Conditions present prior admission:
Left unprovoked DVT [id number] with hematology. Stopped anticoagulation on his own accord
Prior appendectomy
OSIEL on CPAP- follows up with Dr. Nishant Gaona
Prior hernia repair
Non-smoker
Assessment and plan:
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 Patient stopped anticoagulation on his own accord about 1 year and a half ago.
Several weeks ago had a long distance car ride.
Symptoms started 6-7 days prior admission.
-
Patient followed by Dr. Lopes at [facility] has not followed up-sometime, unclear whether he has hypercoagulable disorder.
Per patient report left lower extremity DVT was unprovoked.
Right lower extremity is swollen and has persistent DVT per patient reports.
-
Remains hemodynamically stable.
Not tachycardic
No oxygen requirement
Was able to ambulate without lightheadedness or shortness of breath.
-
Does have evidence for RV strain on ECHO with increased proBNP and mild troponin leak-
Patient does report exertional dyspnea with exertion. No symptoms at rest.
Lower extremity Dopplers: 09/16/2024
On the right, there is occlusive thrombus within the right femoral vein, right popliteal vein, as well as the right peroneal and posterior tibial veins. The right common femoral vein is patent as well as the proximal right greater saphenous vein.
On the left, there is nonocclusive thrombus in the left popliteal vein. The left common femoral, femoral, peroneal, and posterior tibial veins are patent. The left proximal greater saphenous vein is patent.
-
For now hold off on thrombolytics as patient is hemodynamically stable and has no sign of decompensation. No saddle component, mostly asymptomatic. Symptoms started about 6-7d ago.
Discussed with IR and primary team 09-16-2024 - hold on thrombolytics for now.
Patient does have lower extremity DVTs but without large clot burden.
Completed 72 hours of heparin drip.
Okay to transition to Eliquis today starting with a loading dose.
-
Okay to ambulate in the room and around the monson with supervision.
I again, discussed with patient-contraindication to traveling by car. He has vacation scheduled for this Saturday that requires 7 to 8-hour drive.
At home after discharge, okay to walk around the house.
No exercising, running, heavy lifting for the next 2 to 3 weeks.
Will need short-term follow-up in the outpatient setting. Follows up with Dr. Nishant Gaona. Instructed to make an appointment within the next 2 to 3 weeks.
Echocardiogram will need to be repeated in the next 3 months depending on symptoms.
-
OSIEL- cont. CPAP - follows with Dr. Nishant Gaona.
-
Transition to Eliquis and discharged today.
Strongly advised patient to return to the emergency room if symptoms worsen. Activity limitations discussed previously.
-
Dr. Quick updated at the bedside 09/15/2024 and also with son in law and patient detail 09/16/2024.
Dr. Quick updated at the bedside 09/17/2024
Subjective Data
-
Date of Service:
Date of Service: September 18, 2024
Chief Complaint: Pulmonary Follow Up (Submassive pulmonary embolism)
Subjective:
No new complaints
Was able to ambulate without lightheadedness or shortness of breath
Tolerating anticoagulation
Review of Systems
Cardiopulmonary: Dyspnea ( none at rest)
Objective Data
Data Reviewed
Vital Signs / I&O / Oxygen:
Vital Signs
Temp Pulse Resp BP Pulse Ox
97.6 F 58 16 104/62 94
09/18/24 07:00 09/18/24 06:00 09/16/24 12:00 09/18/24 06:00 09/18/24 06:00
SaO2 94
Nasal Cannula flow liters per 2
minute
Physical Exam
General: Comfortable
HEENT: Normocephalic
Cardiovascular: S1-S2 and JVD (n)
Respiratory: Clear and Non-Labored Respirations
GI: Soft and Non Distended
Neurology: Awake, Oriented, AO x 3 and No Motor Deficits
Skin: Warm
Labs/Micro/Reports
Lab Data
09/18/24 01:03
09/18/24 01:03
Laboratory Results
09/17/24 09/17/24 09/17/24
11:00 12:09 18:17
APTT Cancelled 80.3 H 66.7 H
09/18/24
01:03
APTT 137.4 H
--- NOTE | 2024-09-18 10:40 | PTCARENOTE ---
Received pt on 2000units/hr heparin gtt. PTT reassessed at 0900 and PTT is in therapeutic range, infusion remains at 2000units/hr. Pt is alert, pleasant and without complaints this am. He is independent and ambulates halls without difficulty or SOB>
Pulse ox >92% with activity. No complaints of GI or difficulties. Reviewed side effects of anticoagulants with pt, pt has good awareness but will clarify oral anticoagulation instructions when discharge plan is finalized/.
[2024-09-18] MEDS: ELIQUIS 10 MG PO (11:24)
--- NOTE | 2024-09-18 12:56 | W.DCSUMMARY ---
Discharge Summary
Discharge Data
Date of Admission: 09/15/24
Date of Discharge: 09/18/24
Total time spent discharging patient (in min): 40
-
Pending Results: No
Hospital Course
Mr. Marte is a 69-year-old male medical history of unprovoked left lower extremity DVT (was on Eliquis for 1.5 years but stopped on his own) who presented with shortness of breath that began approximately 1 week prior to arrival. He did have a
long car ride prior to symptom onset. In the ED he remained hemodynamically stable and was saturating appropriate on room air. CT angiography of the chest showed bilateral pulmonary emboli. He was started on heparin drip and admitted for further
evaluation and management.
Echocardiogram showed evidence of right heart strain with flattened septum in systole. Bilateral lower extremity ultrasounds revealed DVTs in both of his legs, clot burden is greater in right than the left leg. His shortness of breath improved
after being started on anticoagulation. He remained normotensive and was not hypoxic on room air. After discussion with pulmonology and interventional radiology decision was made not to pursue thromboembolectomy/thrombolysis considering
improvement in his symptoms. He was able to be transitioned to Eliquis starting with a 1 week loading dose, after which he will remain on 5 mg twice daily indefinitely. He will need to follow-up with a salesperson women's hats for further workup of possible
hypercoagulable disorder. He should also follow-up with pulmonology as an outpatient. At time of hospital discharge he was medically stable.
General: No Apparent Distress, Comfortable and Conversant
HEENT: NormoCephalic, Moist mucous membranes, Atraumatic
Respiratory: Clear and Non Labored Respirations
Cardiac: S1/S2 and Regular Rhythm; No Rub or Gallop
GI: Soft, Non Tender, Non Distended and Normal Bowel Sounds
Musculoskeletal: mild bilateral lower extremity edema, no deformity
Skin: Warm and dry
: NO Truong
Neuro: Awake, Alert, Nonfocal/grossly intact
Psych: Calm and Intact Judgment/Insight
Discharge Plan
-
Patient Disposition: Home (Routine Discharge)
Discharge Diagnosis/Procedures: Bilateral pulmonary emboli, bilateral lower extremity DVTs
Activity Restrictions/Additional Instructions:
Mr. Marte is a 69-year-old male medical history of unprovoked left lower extremity DVT (was on Eliquis for 1.5 years but stopped on his own) who presented with shortness of breath that began approximately 1 week prior to arrival. He did have a
long car ride prior to symptom onset. In the ED he remained hemodynamically stable and was saturating appropriate on room air. CT angiography of the chest showed bilateral pulmonary emboli. He was started on heparin drip and admitted for further
evaluation and management.
Echocardiogram showed evidence of right heart strain with flattened septum in systole. Bilateral lower extremity ultrasounds revealed DVTs in both of his legs, clot burden is greater in right than the left leg. His shortness of breath improved
after being started on anticoagulation. He remained normotensive and was not hypoxic on room air. After discussion with pulmonology and interventional radiology decision was made not to pursue thromboembolectomy/thrombolysis considering
improvement in his symptoms. He was able to be transitioned to Eliquis starting with a 1 week loading dose, after which he will remain on 5 mg twice daily indefinitely. He will need to follow-up with a salesperson women's hats for further workup of possible
hypercoagulable disorder. He should also follow-up with pulmonology as an outpatient. At time of hospital discharge he was medically stable.
Referrals:
Bari Siegel MD [Active, Pulmonary Medicine]
Alvin Garrido MD [Family Provider, Internal Medicine]
Johnathan Ross MD [Active, Hematology / Oncology]
Referral Note: eval for thrombophilia
Prescriptions:
New
Eliquis DVT-PE Treat 30D Start 5 mg (74 tabs) tablets,dose pack
See Rx Instructions .ROUTE .COMPLEX Qty: 74 0RF
Rx Instructions:
orally per package directions
Continued
acetaminophen [Tylenol Extra Strength] 500 mg Tablet
500 mg PO Q6HPRN PRN (Reason: headache)
Discharge Orders:
Discharge Patient (As Directed); Ordered 09/18/24
Ordered By: Smith Okeefe
Discharge Date and Time
Print Language: FRENCH
--- NOTE | 2024-09-18 13:09 | CM ---
Patient with Dx Pulmonary emboli. Room air. Receiving Eliquis.
Met with patient who was preparing for discharge. The patient says he feels ready to go home today. IMM completed.
CM Consult: Howie lopez check
Spoke with pharmacist, VERENICE Bradley; with script she was able to check cost - Cost is $304.00/month for starter pack, acost should be less next month.
Provided patient with Eliquis Free Month Card. Patient okay with cost.
Friend at bedside to provide ride home.
Plan home today.
[2024-09-18] MEDS: PREVNAR 20 0.5 ML IM (13:15)
--- NOTE | 2024-09-18 13:51 | PTCARENOTE ---
Patient reviewed discharge instructions and verbalizes understanding. Pt states he is cancelling his plan to attend a family vacation in the [place] due to high risks related to recent hospitalization. Friend at bedside also noting the discharge
plan and will share with pt's . All verbalize understanding of plan and follow up. IV's removed with cannula intact and no bleeding noted. Reviewed risks and side effects of anticoagulation and hand out provided.
== END 2024-09-18 14:17 | disposition home or self-care (01) | DRG 175 ==
LOC: IMU 13:24
PROVIDERS: Clinical Nurse Specialist Family Health; Physician Assistant; ADMITTING PHYSICIAN Hospitalist; ATTENDING PHYSICIAN Internal Medicine; CONSULT PHYSICIAN Internal Medicine Critical Care Medicine; EMERGENCY PHYSICIAN Emergency Medicine; FAMILY PHYSICIAN Internal Medicine
PROC: 3E0234Z Introduction of Serum, Toxoid and Vaccine into Muscle, Percutaneous Approach (ICD-10-PCS; 2024-09-18)
DX: I26.99 Other pulmonary embolism without acute cor pulmonale (principal); I21.A1 Myocardial infarction type 2; I82.411 Acute embolism and thrombosis of right femoral vein; I82.433 Acute embolism and thrombosis of popliteal vein, bilateral; I82.451 Acute embolism and thrombosis of right peroneal vein; I82.441 Acute embolism and thrombosis of right tibial vein; G47.33 Obstructive sleep apnea (adult) (pediatric); Z86.718 Personal history of other venous thrombosis and embolism; Z23 Encounter for immunization
CPT/HCPCS: 71275; 80053; 83880; 84484; 85025; 85730; 90677; 93005; 93306; 93970; 96365; 96366; 99291; G0009; Q9950; Q9967

== ENCOUNTER → 2024-11-09 06:49 | Outpatient (REF) | payer MEDICARE, OTHER, SELFPAY | LOC: RAD 06:49 | PROVIDERS: ATTENDING PHYSICIAN Nurse Practitioner Adult Health; FAMILY PHYSICIAN Internal Medicine | DX: I82.433 Acute embolism and thrombosis of popliteal vein, bilateral (principal) | CPT/HCPCS: 93970 ==

== ENCOUNTER → 2024-12-21 09:16 | Outpatient (REF) | payer MEDICARE, OTHER, SELFPAY | LOC: RCS 09:16 | PROVIDERS: ATTENDING PHYSICIAN Nurse Practitioner Adult Health; FAMILY PHYSICIAN Internal Medicine | DX: I26.99 Other pulmonary embolism without acute cor pulmonale (principal) | CPT/HCPCS: 93308; 93321; 93325 ==